=== PATIENT | female | born 1945 | race Caucasian/White ===

== ENCOUNTER → 2017-08-08 | Outpatient (CLI) | payer MEDICARE | END | disposition home or self-care (01) | LOC: CVU 14:30 | PROVIDERS: ATTEND Internal Medicine Cardiovascular Disease | DX: I35.8 Other nonrheumatic aortic valve disorders (principal) | CPT/HCPCS: 93306 ==

== ENCOUNTER → 2018-02-09 | Outpatient (CLI) | payer MEDICARE | END | disposition home or self-care (01) | LOC: CFH 10:33 | PROVIDERS: ATTEND Nurse Practitioner Family | DX: J84.10 Pulmonary fibrosis, unspecified (principal); M25.78 Osteophyte, vertebrae | CPT/HCPCS: 71250 ==

== ENCOUNTER → 2018-04-10 | Outpatient (CLI) | payer MEDICARE | END | disposition home or self-care (01) | LOC: CFH 10:29 | PROVIDERS: ATTEND Nurse Practitioner Family | DX: J98.4 Other disorders of lung (principal); J98.11 Atelectasis | CPT/HCPCS: 71250 ==